=== PATIENT | female | born 1980 | race American Indian/Alaskan Native ===

== ENCOUNTER 2020-12-18 10:20 | Emergency (ER) | payer BC ==
--- NOTE | 2020-12-18 12:41 | XRay Report ---
CHEST 2 VIEWS INDICATION: cough, suspected covid. COMPARISON: None FINDINGS: Support devices: None. Heart: Within normal limits. Lungs/pleura: No acute air space or interstitial disease. No pneumothorax. Additional findings: None. IMPRESSION: No acute findings. Unremarkable chest films. Signer Name: Kirit Mane Jr, MD Signed: 12/18/2020 12:33 PM Workstation Name: [id number]
--- NOTE | 2020-12-18 13:56 | Emergency Department Report ---
- General Chief Complaint: Pain General Stated Complaint: BODY SORE/COUGH/CANT TASTE Time Seen by Provider: 12/18/20 13:53 Source: patient Mode of arrival: Ambulatory Limitations: No Limitations - History of Present Illness Initial Comments: 40 Year old female presents to ED with complaints of COVID like symptoms. Patient states that she started with cold-like symptoms 2 days ago and then yesterday she developed no taste or smell. She reports associated generalized body aches and a productive cough and nausea. She denies any fever or chills. She denies any shortness of breath, wheezing, abdominal pain, diarrhea or UTI symptoms. She states that her teenage son was seen here and recently diagnosed with pneumonia other than that she denies any other ill contacts or known COVID- 19 contacts. Complaint: cough, other (no taste or no smell) -: days(s) (2) - Related Data Previous Rx's Medication Instructions Recorded Last Taken Type Benzonatate [Tessalon Perles] 100 mg PO Q8HR PRN #100 capsule 12/18/20 Unknown Rx Cetirizine HCl [ZyrTEC 10mg cap] 10 mg PO DAILY #30 capsule 12/18/20 Unknown Rx Ketorolac [Toradol] 10 mg PO Q6H PRN #20 tablet 12/18/20 Unknown Rx Allergies Allergy/AdvReac Type Severity Reaction Status Date / Time No Known Allergies Allergy Unverified 12/18/20 11:08 ED Review of Systems ROS: Stated complaint: BODY SORE/COUGH/CANT TASTE Other details as noted in HPI Comment: All other systems reviewed and negative Constitutional: denies: chills, fever Eyes: denies: eye pain, eye discharge, vision change ENT: denies: ear pain, throat pain, dental pain, hearing loss, congestion Respiratory: cough. denies: shortness of breath, SOB with exertion, SOB at rest, wheezing Cardiovascular: denies: chest pain, palpitations, dyspnea on exertion, edema, syncope, paroxysmal nocturnal dyspnea Gastrointestinal: nausea. denies: abdominal pain, diarrhea, constipation, hematemesis, hematochezia Genitourinary: denies: urgency, dysuria, frequency, hematuria, discharge, abno rmal menses, dyspareunia Musculoskeletal: myalgia. denies: back pain, joint swelling, arthralgia Skin: denies: rash, lesions, change in color, change in hair/nails, pruritus Neurological: denies: headache, weakness, numbness, paresthesias, confusion, abnormal gait Psychiatric: denies: anxiety, depression, auditory hallucinations, visual hallucinations, homicidal thoughts, suicidal thoughts Hematological/Lymphatic: denies: easy bleeding, easy bruising, swollen glands ED Past Medical Hx - Past Medical History Previous Medical History?: No - Surgical History Past Surgical History?: Yes Additional Surgical History: - Medications Home Medications: Home Medications Medication Instructions Recorded Confirmed Last Taken Type Benzonatate [Tessalon Perles] 100 mg PO Q8HR PRN #100 capsule 12/18/20 Unknown Rx Cetirizine HCl [ZyrTEC 10mg cap] 10 mg PO DAILY #30 capsule 12/18/20 Unknown Rx Ketorolac [Toradol] 10 mg PO Q6H PRN #20 tablet 12/18/20 Unknown Rx ED Physical Exam - General Limitations: No Limitations General appearance: alert, in no apparent distress - Head Head exam: Present: atraumatic, normocephalic, normal inspection - Eye Eye exam: Present: normal appearance, PERRL, EOMI Pupils: Present: normal accommodation - ENT ENT exam: Present: normal exam, mucous membranes moist - Neck Neck exam: Present: normal inspection, full ROM - Respiratory Respiratory exam: Present: normal lung sounds bilaterally - Cardiovascular Cardiovascular Exam: Present: regular rate, normal rhythm, normal heart sounds - GI/Abdominal GI/Abdominal exam: Present: soft. Absent: distended, tenderness, guarding, rebound - Extremities Exam Extremities exam: Present: normal inspection - Back Exam Back exam: Present: normal inspection - Neurological Exam Neurological exam: Present: alert, oriented X3, CN II-XII intact, normal gait - Psychiatric Psychiatric exam: Present: normal affect, normal mood - Skin Skin exam: Present: intact ED Course Vital Signs 12/18/20 12/18/20 11:11 14:18 Temperature 98.6 F Pulse Rate 107 H 98 H Respiratory 20 16 Rate Blood Pressure 153/111 Blood Pressure 134/93 [Left] O2 Sat by Pulse 98 99 Oximetry ED Medical Decision Making - Radiology Data The patient is resting comfortably, is alert and in no distress. The patient has normal mental status and is neurologically intact. The patient appears well and there is no significant dehydration. There is no respiratory distress and no signs of systemic toxicity. Her history, exam, diagnostic testing and current condition do not demonstrate an infectious process such as meningitis, severe pneumonia, acute respiratory distress syndrome, sepsis or other serious viral/bacterial infection requiring further testing, treatment, consultation or admission at this time. Her blood pressure at triage was noted to be elevated but on repeat had improved. Discussed with patient that her symptoms are likely viral and recommend patient that she should get an outpatient COVID-19 test. t he patient's condition is stable and appropriate for discharge. The patient will pursue further outpatient evaluation with the primary care physician. Critical care attestation.: If time is entered above; I have spent that time in minutes in the direct care of this critically ill patient, excluding procedure time. ED Disposition Clinical Impression: Viral URI with cough, Suspected COVID-19 virus infection Disposition: TO HOME OR SELFCARE Is pt being admited?: No Does the pt Need Aspirin: No Condition: Stable Instructions: Upper Respiratory Infection, Adult, [id number] Additional Instructions: Take the Toradol as prescribed and as needed for pain. Take the Zyrtec and the Tessalon Perles as prescribed. I recommend that you follow-up with one of the local pharmacies or urgent care to get a COVID-19 test. I recommend that you quarantine at home until you get the test results. Drink lots of fluids. Take a multivitamin daily. Follow-up closely with your PCP. Return to the ER if your symptoms changes or worsens in any way. Prescriptions: Benzonatate [Tessalon Perles] 100 mg PO Q8HR PRN #100 capsule PRN Reason: Cough Ketorolac [Toradol] 10 mg PO Q6H PRN #20 tablet PRN Reason: Pain Cetirizine HCl [ZyrTEC 10mg cap] 10 mg PO DAILY #30 capsule Referrals: ELI GARCIA MD [Staff Physician] - 3-5 Days Forms: Work/School Release Form(ED) Time of Disposition: 14:40
[2020-12-18 14:19] VITALS: BP 134/93
== END 2020-12-18 14:58 | disposition home or self-care (01) ==
LOC: ED 10:20
DX: J06.9 Acute upper respiratory infection, unspecified (principal); Z03.818 Encounter for observation for suspected exposure to other biological agents ruled out
CPT/HCPCS: 71046; 99283

== ENCOUNTER 2020-12-25 11:57 | Inpatient (IN) | payer BC ==
[2020-12-25] MEDS ORDERED: ACETAMINOPHEN 325 MG TAB PO ONE (12:20)
--- NOTE | 2020-12-25 12:58 | XRay Report ---
CHEST 2 VIEWS INDICATION / CLINICAL INFORMATION: cough, fever. COMPARISON: 12/18/2020 FINDINGS: SUPPORT DEVICES: None. HEART / MEDIASTINUM: No significant abnormality. LUNGS / PLEURA: Interval development of mild patchy bilateral opacities. ADDITIONAL FINDINGS: No significant additional findings. IMPRESSION: 1. Interval development of mild patchy bilateral pulmonary opacities that likely indicate multifocal pneumonia. Signer Name: Alexandr Colindres MD Signed: 12/25/2020 12:53 PM Workstation Name: [id number]
--- NOTE | 2020-12-25 14:18 | Emergency Department Report ---
- General Chief Complaint: Dyspnea/Respdistress Stated Complaint: PHU/COUGH PUI?: Yes Time Seen by Provider: 12/25/20 14:12 Source: patient Mode of arrival: Stretcher Limitations: No Limitations - History of Present Illness Initial Comments: 40-year-old obese -Martiniquais female presents to the emergency room brought in by EMS for complaint of cough shortness of breath body aches and headache. Patient states this is been having symptoms for over a week. She states that she went to get Covid test today was not able to get her results when she sta rted to get short of breath continuous coughing. Patient came in via [facility]. It was noted patient had a low-grade fever. She reports a decrease in appetite loss of taste and smell last week. Complains of a dry cough. Has not been vaccinated for Covid. Has no past medical history except obesity. Currently takes no medications on a daily basis and has no known drug allergies. MD Complaint: fever, cough, other (sob) Onset/Timin -: week(s) Severity scale (0 -10): 8 Consistency: constant Improves With: nothing Worsens With: activity, deep breaths Context: other (Possible exposure to Covid) Associated Symptoms: fever, headache, cough, shortness of breath, other (Generalized body aches) Treatments Prior to Arrival: none - Related Data Previous Rx's Medication Instructions Recorded Last Taken Type Benzonatate [Tessalon Perles] 100 mg PO Q8HR PRN #100 capsule 12/18/20 Unknown Rx Cetirizine HCl [ZyrTEC 10mg cap] 10 mg PO DAILY #30 capsule 12/18/20 Unknown Rx Ketorolac [Toradol] 10 mg PO Q6H PRN #20 tablet 12/18/20 Unknown Rx Allergies Allergy/AdvReac Type Severity Reaction Status Date / Time No Known Allergies Allergy Unverified 12/18/20 11:08 ED Review of Systems ROS: Stated complaint: PHU/COUGH Other details as noted in HPI Comment: All other systems reviewed and negative ED Past Medical Hx - Past Medical History Previous Medical History?: No - Surgical History Past Surgical History?: No Additional Surgical History: - Medications Home Medications: Home Medications Medication Instructions Recorded Confirmed Last Taken Type Benzonatate [Tessalon Perles] 100 mg PO Q8HR PRN #100 capsule 12/18/20 Unknown Rx Cetirizine HCl [ZyrTEC 10mg cap] 10 mg PO DAILY #30 capsule 12/18/20 Unknown Rx Ketorolac [Toradol] 10 mg PO Q6H PRN #20 tablet 12/18/20 Unknown Rx ED Physical Exam - General Limitations: No Limitations General appearance: alert, in no apparent distress, obese - Head Head exam: Present: normocephalic, normal inspection - Eye Eye exam: Present: normal appearance, EOMI - ENT ENT exam: Present: normal orophraynx, mucous membranes moist, normal external ear exam - Neck Neck exam: Present: normal inspection, full ROM - Respiratory Respiratory exam: Present: respiratory distress, accessory muscle use, other (Cough tachypneic at 32) - Cardiovascular Cardiovascular Exam: Present: tachycardia - GI/Abdominal GI/Abdominal exam: Present: soft. Absent: distended, tenderness - Extremities Exam Extremities exam: Present: normal inspection, full ROM - Back Exam Back exam: Present: normal inspection, full ROM - Neurological Exam Neurological exam: Present: alert, oriented X3, normal gait - Psychiatric Psychiatric exam: Present: normal affect, normal mood - Skin Skin exam: Present: warm, dry, intact, normal color. Absent: rash ED Course Vital Signs 12/25/20 12:11 Temperature 100.4 F H Pulse Rate 90 Respiratory 22 Rate Blood Pressure 128/70 [Right] O2 Sat by Pulse 97 Oximetry - Reevaluation(s) Reevaluation #1: 12/25/20 15:52 Ambulatory pulse ox dropped to 85% heart rate shot up to 130 - Consultations Consultation #1: 12/25/20 15:[address] Hoyos for admission he has accepted patient Consultation #2: 12/25/20 15:[address] Padilla regarding patient meeting criteria for admission. ED Medical Decision Making - Medical Decision Making 40-year-old obese -Martiniquais female presents to the emergency room brought in by EMS for complaint of cough shortness of breath body aches and headache. Patient states this is been having symptoms for over a week. She states that she went to get Covid test today was not able to get her results when she started to get short of breath continuous coughing. Patient came in via [facility]. It was noted patient had a low-grade fever. She reports a decrease in appetite loss of taste and smell last week. Complains of a dry cough. Has not been vaccinated for Covid. Has no past medical history except obesity. Currently takes no medications on a daily basis and has no known drug allergies. Patient's chest x-ray shows bilateral opacities with atypical pneumonia. Patient be placed in INT. IV dexamethasone, promethazine with codeine p.o. normal saline albuterol neb treatment. Ambulatory pulse ox has been ordered. Ambulatory pulse ox dropped to 85% on room air heart rate shot up to 130. Discussed case with regarding needing admission spoke to Dr. Hoyos regarding admission. Bridge orders has been placed Covid labs have been ordered. Critical Care Time: Yes (45) Critical care attestation.: If time is entered above; I have spent that time in minutes in the direct care of this critically ill patient, excluding procedure time. ED Disposition Clinical Impression: Suspected COVID-19 virus infection, Hypoxic, Tachypnea on examination, Shortness of breath at rest, Morbid obesity with BMI of 40.0-44.9, adult Disposition: 09 OP ADMIT IP TO THIS HOSP Is pt being admited?: Yes Does the pt Need Aspirin: Yes Condition: Stable
[2020-12-25] MEDS ORDERED: ALBUTEROL 2.5 MG/3 ML NEBU IH ONE (15:10)
[2020-12-25] MEDS ORDERED: PROMETHAZINE/CODEINE 6.25-10 MG ORAL LIQD 5 ML PO NR (15:10)
[2020-12-25] MEDS ORDERED: dexAMETHasone 20 MG/5 ML VIAL IV ONE (15:10)
[2020-12-25 16:14] LABS: Basophils % (Auto) 0.3 % (0.0-1.8); Eosinophils % (Auto) 0.1 % (0.0-4.3); Hematocrit 36.5 % (30.3-42.9); Hemoglobin 11.9 gm/dl (10.1-14.3); Lymphocytes # (Auto) 1.1 K/mm3 (1.2-5.4); Lymphocytes % (Auto) 25.3 % (13.4-35.0); Mean Corpuscular HGB Conc 33 % (30-34); Mean Corpuscular Volume 85 fl (79-97); Monocytes # (Auto) 0.4 K/mm3 (0.0-0.8); Platelet Count 280 K/mm3 (140-440); Red Blood Count 4.27 M/mm3 (3.65-5.03); Red Cell Distribution Width 14.2 % (13.2-15.2)
[2020-12-25 16:33] LABS: Alanine Aminotransferase 37 units/L (7-56); Albumin 3.9 g/dL (3.9-5); Blood Urea Nitrogen 20 mg/dL (7-17); Calcium 9.5 mg/dL (8.4-10.2); Hemolysis Index 7
[2020-12-25 16:37] LABS: BUN/Creatinine Ratio 29
[2020-12-25 16:37] LABS: C-Reactive Protein 5.9 mg/dL (0.00-1.30)
[2020-12-25] MEDS ORDERED: ACETAMINOPHEN 325 MG TAB PO PRN (21:51)
[2020-12-25] MEDS ORDERED: ONDANSETRON 4 MG/2 ML INJ IV PRN (21:51)
[2020-12-25] MEDS ORDERED: oxyCODONE /ACETAMINOPHEN 5-325MG TAB PO PRN (21:51)
--- NOTE | 2020-12-25 21:51 | History and Physical Report ---
History of Present Illness Date of examination: 12/25/20 Date of admission: 12/25/20 16:00 Chief complaint: Shortness of breath and cough History of present illness: 40-year-old obese -Barb[place] female presents to the emergency room brought in by EMS for complaint of cough shortness of breath body aches and headache. Patient states this is been having symptoms for over a week. She states that she went to get Covid test today was not able to get her results when she started to get short of breath continuous coughing. Patient came in via [facility]. It was noted patient had a low-grade fever. She reports a decrease in appetite loss of taste and smell last week. Complains of a dry cough. Has not been vaccinated for Covid. Has no past medical history except obesity. Currently takes no medications on a daily basis and has no known drug allergies. MD Complaint: fever, cough, other (sob) Onset/Timin -: week(s) Severity scale (0 -10): 8 Consistency: constant Improves With: nothing Worsens With: activity, deep breaths Context: other (Possible exposure to Covid) Associated Symptoms: fever, headache, cough, shortness of breath, other (Generalized body aches) Treatments Prior to Arrival: none - Related Data Previous Rx's Medication Instructions Recorded Last Taken Type Benzonatate [Tessalon Perles] 100 mg PO Q8HR PRN #100 capsule 12/18/20 Unknown Rx Cetirizine HCl [ZyrTEC 10mg cap] 10 mg PO DAILY #30 capsule 12/18/20 Unknown Rx Ketorolac [Toradol] 10 mg PO Q6H PRN #20 tablet 12/18/20 Unknown Rx Allergies Allergy/AdvReac Type Severity Reaction Status Date / Time No Known Allergies Allergy Unverified 12/18/20 11:08 - Past Medical History Previous Medical History?: No - Surgical History Past Surgical History?: No Additional Surgical History: - Medications Home Medications: Home Medications Medication Instructions Recorded Confirmed Last Taken Type Benzonatate [Tessalon Perles] 100 mg PO Q8HR PRN #100 capsule 12/18/20 Unknown Rx Cetirizine HCl [ZyrTEC 10mg cap] 10 mg PO DAILY #30 capsule 12/18/20 Unknown Rx Ketorolac [Toradol] 10 mg PO Q6H PRN #20 tablet 12/18/20 Unknown Rx Review of Systems ROS: Stated complaint: PHU/COUGH Other details as noted in HPI Comment: All other systems reviewed and negative Medications and Allergies Allergies Allergy/AdvReac Type Severity Reaction Status Date / Time No Known Allergies Allergy Unverified 12/18/20 11:08 Home Medications Medication Instructions Recorded Confirmed Last Taken Type Benzonatate [Tessalon Perles] 100 mg PO Q8HR PRN #100 capsule 12/18/20 Unknown Rx Cetirizine HCl [ZyrTEC 10mg cap] 10 mg PO DAILY #30 capsule 12/18/20 Unknown Rx Ketorolac [Toradol] 10 mg PO Q6H PRN #20 tablet 12/18/20 Unknown Rx Exam - Constitutional Vitals: Temp Pulse Resp BP Pulse Ox 100.4 F H 90 22 128/70 97 12/25/20 12:11 12/25/20 12:11 12/25/20 12:11 12/25/20 12:11 12/25/20 12:11 General appearance: Present: mild distress, well-nourished - EENT Eyes: Present: PERRL ENT: hearing intact, clear oral mucosa - Neck Neck: Present: supple, normal ROM - Respiratory Respiratory effort: normal Respiratory: bilateral: CTA - Cardiovascular Heart rate: 78 Rhythm: regular Heart Sounds: Present: S1 & S2. Absent: rub, click - Extremities Extremities: pulses symmetrical, No edema Peripheral Pulses: within normal limits - Abdominal General gastrointestinal: Present: soft, non-tender, non-distended, normal bowel sounds Female genitourinary: Present: normal - Integumentary Integumentary: Present: clear, warm, dry - Musculoskeletal Musculoskeletal: gait normal, strength equal bilaterally - Psychiatric Psychiatric: appropriate mood/affect, intact judgment & insight - Neurologic Neurologic: CNII-XII intact, moves all extremities Results - Labs CBC & Chem 7: 12/26/20 04:20 12/26/20 04:20 Labs: Laboratory Last Values WBC 4.4 K/mm3 (4.5-11.0) L 12/25/20 15:49 RBC 4.27 M/mm3 (3.65-5.03) 12/25/20 15:49 Hgb 11.9 gm/dl (10.1-14.3) 12/25/20 15:49 Hct 36.5 % (30.3-42.9) 12/25/20 15:49 MCV 85 fl (79-97) 12/25/20 15:49 MCH 28 pg (28-32) 12/25/20 15:49 MCHC 33 % (30-34) 12/25/20 15:49 RDW 14.2 % (13.2-15.2) 12/25/20 15:49 Plt Count 280 K/mm3 (140-440) 12/25/20 15:49 Lymph % (Auto) 25.3 % (13.4-35.0) 12/25/20 15:49 [place] % (Auto) 8.0 % (0.0-7.3) H 12/25/20 15:49 Eos % (Auto) 0.1 % (0.0-4.3) 12/25/20 15:49 Baso % (Auto) 0.3 % (0.0-1.8) 12/25/20 15:49 Lymph # (Auto) 1.1 K/mm3 (1.2-5.4) L 12/25/20 15:49 [place] # (Auto) 0.4 K/mm3 (0.0-0.8) 12/25/20 15:49 Eos # (Auto) 0.0 K/mm3 (0.0-0.4) 12/25/20 15:49 Baso # (Auto) 0.0 K/mm3 (0.0-0.1) 12/25/20 15:49 Seg Neutrophils % 66.3 % (40.0-70.0) 12/25/20 15:49 Seg Neutrophils # 2.9 K/mm3 (1.8-7.7) 12/25/20 15:49 D-Dimer 347.25 ng/mlDDU (0-234) H 12/25/20 15:55 Sodium 136 mmol/L (137-145) L 12/25/20 15:49 Potassium 3.5 mmol/L (3.6-5.0) L 12/25/20 15:49 Chloride 97.6 mmol/L (98-107) L 12/25/20 15:49 Carbon Dioxide 28 mmol/L (22-30) 12/25/20 15:49 Anion Gap 14 mmol/L 12/25/20 15:49 BUN 20 mg/dL (7-17) H 12/25/20 15:49 Creatinine 0.7 mg/dL (0.6-1.2) 12/25/20 15:49 Estimated GFR > 60 ml/min 12/25/20 15:49 BUN/Creatinine Ratio 29 % 12/25/20 15:49 Glucose 119 mg/dL (65-100) H 12/25/20 15:49 Calcium 9.5 mg/dL (8.4-10.2) 12/25/20 15:49 Ferritin 380.3 ng/mL (10.0-200.0) H 12/25/20 15:55 Total Bilirubin 1.20 mg/dL (0.1-1.2) 12/25/20 15:49 AST 39 units/L (5-40) 12/25/20 15:49 ALT 37 units/L (7-56) 12/25/20 15:49 Alkaline Phosphatase 107 units/L (35-129) 12/25/20 15:49 Lactate Dehydrogenase 397 units/L (91-180) H 12/25/20 15:55 C-Reactive Protein 5.90 mg/dL (0.00-1.30) H 12/25/20 15:55 Total Protein 7.6 g/dL (6.3-8.2) 12/25/20 15:49 Albumin 3.9 g/dL (3.9-5) 12/25/20 15:49 Albumin/Globulin Ratio 1.1 % 12/25/20 15:49 Assessment and Plan Advance Directives: Yes (Full code) VTE prophylaxis?: Chemical Plan of care discussed with patient/family: Yes - Patient Problems (1) Acute respiratory failure with hypoxia Current Visit: Yes Status: Acute Plan to address problem: Continue oxygen supplementation (2) Suspected COVID-19 virus infection Current Visit: Yes Status: Acute Plan to address problem: Coronavirus PCR pending (3) Bilateral pneumonia Current Visit: Yes Status: Acute Plan to address problem: IV antibiotics with Rocephin and Zithromax for now (4) DVT prophylaxis Current Visit: Yes Status: Acute Plan to address problem: On heparin and GI prophylaxis
[2020-12-25] MEDS ORDERED: NON-FORMULARY EACH (Cetirizine Hcl [Zyrtec 10mg Cap] 10 MG Capsule) PO SCH (22:00)
[2020-12-26] MEDS: ENOXAPARIN 40 MG/0.4 ML INJ SUB-Q SCH (00:09)
[2020-12-26] MEDS: cefTRIAXone/NS 2 GM/100 ML 2 GM/100 ML BAG IV SCH (00:09)
[2020-12-26] MEDS: FAMOTIDINE 20 MG TAB PO SCH ×2 (00:10→10:25)
[2020-12-26] MEDS: AZITHROMYCIN/NS 500 MG/250 ML 500 MG/250 ML BAG IV SCH (04:30)
[2020-12-26 04:38] LABS: Basophils % (Auto) 0.4 % (0.0-1.8); Hematocrit 33.6 % (30.3-42.9); Hemoglobin 10.9 gm/dl (10.1-14.3); Lymphocytes % (Auto) 39.7 % (13.4-35.0); Mean Corpuscular HGB Conc 33 % (30-34); Mean Corpuscular Volume 85 fl (79-97); Monocytes # (Auto) 0.3 K/mm3 (0.0-0.8); Monocytes % (Auto) 12.7 % (0.0-7.3); Platelet Count 276 K/mm3 (140-440); Red Blood Count 3.95 M/mm3 (3.65-5.03); Red Cell Distribution Width 13.9 % (13.2-15.2)
[2020-12-26 05:05] LABS: Alanine Aminotransferase 42 units/L (7-56); Albumin 3.7 g/dL (3.9-5); BUN/Creatinine Ratio 24; Blood Urea Nitrogen 17 mg/dL (7-17); Calcium 8.8 mg/dL (8.4-10.2); Hemolysis Index 1
[2020-12-26] MEDS: CETIRIZINE 10 MG TAB PO SCH ×2 (07:18→11:19)
[2020-12-26] MEDS: dexAMETHasone 4 MG/ML VIAL IV SCH (10:25)
[2020-12-26] MEDS: BENZONATATE 100 MG CAP PO PRN (19:44)
[2020-12-26] MEDS: HYDROmorphone 1 MG/1 ML INJ IV PRN (23:59)
[2020-12-27] MEDS: FAMOTIDINE 20 MG TAB PO SCH ×3 (00:01→21:58)
[2020-12-27] MEDS: ENOXAPARIN 40 MG/0.4 ML INJ SUB-Q SCH ×2 (00:02→21:58)
[2020-12-27] MEDS ORDERED: ALBUTEROL 8.5 GM MDI INHALATION IH PRN (01:19)
[2020-12-27] MEDS: AZITHROMYCIN/NS 500 MG/250 ML 500 MG/250 ML BAG IV SCH ×2 (01:37→22:14)
[2020-12-27] MEDS: HYDROmorphone 1 MG/1 ML INJ IV PRN ×2 (04:50→16:56)
--- NOTE | 2020-12-27 08:20 | Progress Note ---
Assessment and Plan - Patient Problems (1) Acute respiratory failure with hypoxia Current Visit: Yes Status: Acute Plan to address problem: Continue oxygen supplementation (2) Suspected COVID-19 virus infection Current Visit: Yes Status: Acute Plan to address problem: Coronavirus PCR pending (3) Bilateral pneumonia Current Visit: Yes Status: Acute Plan to address problem: IV antibiotics with Rocephin and Zithromax for now (4) DVT prophylaxis Current Visit: Yes Status: Acute Plan to address problem: On heparin and GI prophylaxis Subjective Date of service: 12/26/20 Principal diagnosis: Bilateral pneumonia, rule out Covid Interval history: 40-year-old obese -Moroc[place] female presents to the emergency room brought in by EMS for complaint of cough shortness of breath body aches and headache. Patient states this is been having symptoms for over a week. She states that she went to get Covid test today was not able to get her results when she started to get short of breath continuous coughing. Patient came in via [facility]. It was noted patient had a low-grade fever. She reports a decrease in appetite loss of taste and smell last week. Complains of a dry cough. Has not been vaccinated for Covid. Has no past medical history except obesity. Sola christianson takes no medications on a daily basis and has no known drug allergies. 12/26/2020 Covid PCR pending Objective - Constitutional General appearance: Present: no acute distress, well-nourished - EENT Eyes: PERRL, EOM intact ENT: hearing intact, clear oral mucosa Ears: bilateral: normal - Neck Neck: supple, normal ROM - Respiratory Respiratory effort: normal Respiratory: bilateral: CTA - Breasts Breasts: normal - Cardiovascular Heart rate: 78 Rhythm: regular Heart Sounds: Present: S1 & S2. Absent: gallop, rub Extremities: pulses intact, No edema, normal color, Full ROM - Gastrointestinal General gastrointestinal: Present: soft, non-tender, non-distended, normal bowel sounds - Genitourinary Female genitourinary: normal - Integumentary Integumentary: clear, warm, dry - Musculoskeletal Musculoskeletal: 1, strength equal bilaterally - Neurologic Neurologic: moves all extremities - Psychiatric Psychiatric: memory intact, appropriate mood/affect, intact judgment & insight - Labs CBC & Chem 7: 12/26/20 04:20 12/26/20 04:20
[2020-12-27] MEDS: CETIRIZINE 10 MG TAB PO SCH (10:49)
[2020-12-27] MEDS: dexAMETHasone 4 MG/ML VIAL IV SCH (10:49)
[2020-12-27] MEDS: guaiFENesin/CODEINE 100-10MG ORAL LIQD 5 ML PO PRN (16:10)
[2020-12-27] MEDS: BENZONATATE 100 MG CAP PO PRN (16:11)
[2020-12-27] MEDS: cefTRIAXone/NS 2 GM/100 ML 2 GM/100 ML BAG IV SCH ×2 (22:03)
[2020-12-28] MEDS: guaiFENesin/CODEINE 100-10MG ORAL LIQD 5 ML PO PRN (09:22)
[2020-12-28] MEDS: dexAMETHasone 4 MG/ML VIAL IV SCH (09:22)
[2020-12-28] MEDS: BENZONATATE 100 MG CAP PO PRN (09:22)
[2020-12-28] MEDS: CETIRIZINE 10 MG TAB PO SCH (09:22)
[2020-12-28] MEDS: FAMOTIDINE 20 MG TAB PO SCH (09:22)
--- NOTE | 2020-12-28 11:32 | Progress Note ---
Assessment and Plan - Patient Problems (1) Acute respiratory failure with hypoxia Current Visit: Yes Status: Acute Plan to address problem: Continue oxygen supplementation (2) Suspected COVID-19 virus infection Current Visit: Yes Status: Acute Plan to address problem: Coronavirus PCR positive (3) Bilateral pneumonia Current Visit: Yes Status: Acute Plan to address problem: IV antibiotics with Rocephin and Zithromax for now (4) DVT prophylaxis Current Visit: Yes Status: Acute Plan to address problem: On heparin and GI prophylaxis Subjective Date of service: 12/27/20 Principal diagnosis: Bilateral pneumonia, rule out Covid Interval history: 40-year-old obese -[place] female presents to the emergency room brought in by EMS for complaint of cough shortness of breath body aches and headache. Patient states this is been having symptoms for over a week. She states that she went to get Covid test today was not able to get her results when she started to get short of breath continuous coughing. Patient came in via [facility]. It was noted patient had a low-grade fever. She reports a decrease in appetite loss of taste and smell last week. Complains of a dry cough. Has not been vaccinated for Covid. Has no past medical history except obesity. Cur rently takes no medications on a daily basis and has no known drug allergies. 12/26/2020 Covid PCR positive On 3 L nasal cannula oxygen 12/27/2020 Covid positive On room air Possible discharge tomorrow if stable Continue IV Decadron No need for remdesivir Objective - Constitutional Vitals: Vital Signs - 12hr 12/28/20 11:13 O2 Sat by Pulse 98 Oximetry General appearance: Present: no acute distress, well-nourished - EENT Eyes: PERRL, EOM intact ENT: hearing intact, clear oral mucosa Ears: bilateral: normal - Neck Neck: supple, normal ROM - Respiratory Respiratory effort: normal Respiratory: bilateral: CTA - Breasts Breasts: normal - Cardiovascular Heart rate: 78 Rhythm: regular Heart Sounds: Present: S1 & S2. Absent: gallop, rub Extremities: pulses intact, No edema, normal color, Full ROM - Gastrointestinal General gastrointestinal: Present: soft, non-tender, non-distended, normal bowel sounds - Genitourinary Female genitourinary: normal - Integumentary Integumentary: clear, warm, dry - Musculoskeletal Musculoskeletal: 1, strength equal bilaterally - Neurologic Neurologic: moves all extremities - Psychiatric Psychiatric: memory intact, appropriate mood/affect, intact judgment & insight - Labs CBC & Chem 7: 12/26/20 04:20 12/26/20 04:20 Labs: Abnormal lab results 12/26/20 Range/Units Unknown Coronavirus (PCR) Positive A (Negative)
--- NOTE | 2020-12-28 11:46 | Discharge Summary ---
Providers - Providers Date of Admission: 12/25/20 16:00 Date of discharge: 12/28/20 Attending physician: KENRICK GRAYSON Primary care physician: [employer] Hospitalization Condition: Stable Hospital course: Subjective Date of service: 12/28/20 Principal diagnosis: Bilateral pneumonia, rule out Covid Interval history: 40-year-old obese -[place] female presents to the emergency room brought in by EMS for complaint of cough shortness of breath body aches and headache. Patient states this is been having symptoms for over a week. She states that she went to get Covid test today was not able to get her results when she started to get short of breath continuous coughing. Patient came in via [facility]. It was noted patient had a low-grade fever. She reports a decrease in appetite loss of taste and smell last week. Complains of a dry cough. Has not been vaccinated for Covid. Has no past medical history except obesity. Currently takes no medications on a daily basis and has no known drug allergies. 12/26/2020 Covid PCR positive On 3 L nasal cannula oxygen 12/27/2020 Covid positive On room air Possible discharge tomorrow if stable Continue IV Decadron No need for remdesivir 12/28/2020 Covid positive Not yet decided about vaccination Counseled about vaccination Patient to be discharged on oral Decadron patient counseled about not smoking etc. Assessment and Plan - Patient Problems (1) Acute respiratory failure with hypoxia Current Visit: Yes Status: Acute Plan to address problem: Improved and on room air (2) Suspected COVID-19 virus infection Current Visit: Yes Status: Acute Plan to address problem: Coronavirus PCR positive Discharge on oral Decadron (3) Bilateral pneumonia Current Visit: Yes Status: Acute Plan to address problem: Antibiotics to be stopped (4) DVT prophylaxis Current Visit: Yes Status: Acute Plan to address problem: On heparin and GI prophylaxis Disposition: TO HOME OR SELFCARE Final Discharge Diagnosis (Prints w/discharge instructions): . COVID-pneumonia. Respiratory failure with hypoxia. Obesity. Hypokalemia - Discharge Diagnoses (1) Acute respiratory failure with hypoxia Status: Acute (2) Suspected COVID-19 virus infection Status: Acute (3) Bilateral pneumonia Status: Acute (4) DVT prophylaxis Status: Acute Core Measure Documentation - Palliative Care Palliative Care/ Comfort Measures: Not Applicable - Core Measures Any of the following diagnoses?: none Exam - Constitutional Vitals: Temp Pulse Resp BP Pulse Ox 98.0 F 92 H 22 111/83 98 12/27/20 22:00 12/27/20 22:00 12/27/20 17:59 12/27/20 22:00 12/28/20 11:13 General appearance: Present: no acute distress, well-nourished - EENT Eyes: Present: PERRL ENT: hearing intact, clear oral mucosa - Neck Neck: Present: supple, normal ROM - Respiratory Respiratory effort: normal Respiratory: bilateral: CTA - Cardiovascular Heart rate: 78 Rhythm: regular Heart Sounds: Present: S1 & S2. Absent: rub, click - Extremities Extremities: pulses symmetrical, No edema Peripheral Pulses: within normal limits - Abdominal General gastrointestinal: Present: soft, non-tender, non-distended, normal bowel sounds Female genitourinary: Present: normal - Integumentary Integumentary: Present: clear, warm, dry - Musculoskeletal Musculoskeletal: gait normal, strength equal bilaterally - Psychiatric Psychiatric: appropriate mood/affect, intact judgment & insight - Neurologic Neurologic: CNII-XII intact, moves all extremities Plan Activity: no restrictions Diet: regular Follow up with: PRIMARY CARE, [Primary Care Provider] - 7 Days
[2020-12-28 13:45] VITALS: BP 129/83
== END 2020-12-28 15:17 | disposition home or self-care (01) | DRG 177 ==
LOC: ED 11:57 → 3A 16:00
PROVIDERS: ADMIT Internal Medicine; ATTEND Internal Medicine
DX: U07.1 COVID-19 (principal); J96.01 Acute respiratory failure with hypoxia; J12.82 Pneumonia due to coronavirus disease 2019; Z68.41 Body mass index [BMI] 40.0-44.9, adult; E66.01 Morbid (severe) obesity due to excess calories; E87.6 Hypokalemia
CPT/HCPCS: 36415; 71046; 80053; 82728; 83036; 83615; 84145; 85025; 85379; 86140; 99291; G0378; J0456; J0696; J1100; J1170; J1650; U0003